=== PATIENT | female | born 2000 | race Two or more races ===

== ENCOUNTER 2024-03-27 17:51 | Emergency (ER) | payer OTHER ==
[~2024-03-27] VITALS: Ht 165.1 cm; Wt 60.9 kg
[2024-03-27 17:55] VITALS: BP 126/89; PULSE 77; RESP 16; TEMP 98.7; O2SAT 100
--- NOTE | 2024-03-27 18:07 | NUR ---
ASSUMED PATIENT CARE, NURSING ASSESSMENT COMPLETED. SEEN AND EVALUATED BY PROVIDER, MSE COMPLETED.
[2024-03-27] MEDS: predniSONE 20 MG TAB PO STA (18:26)
[2024-03-27] MEDS: FAMOTIDINE 20 MG TAB PO ONE (18:27)
[2024-03-27] MEDS ORDERED: LORA10TA60 PO (18:33)
[2024-03-27] MEDS ORDERED: DIPH25TA53 PO (18:33)
[2024-03-27] MEDS ORDERED: PRED20TA5 PO (18:33)
[2024-03-27 18:39] VITALS: BP 126/89; PULSE 77; RESP 16; TEMP 98.7; O2SAT 100
--- NOTE | 2024-03-27 18:40 | NUR ---
Patient discharged with v/s stable. Written and verbal after care instructions given and explained. Patient alert, oriented and verbalized understanding of instructions. Ambulatory with steady gait. All questions addressed prior to discharge. ID band removed. Patient advised to follow up with PMD. Rx of BENADRYL, LORATADINE, PREDNISONE given. Patient educated on indication of medication including possible reaction and side effects. Opportunity to ask questions provided and answered.
== END 2024-03-27 18:40 | disposition home or self-care (01) ==
LOC: MED 17:51
DX: L50.9 Urticaria, unspecified (principal); R03.0 Elevated blood-pressure reading, without diagnosis of hypertension; Z79.899 Other long term (current) drug therapy
CPT/HCPCS: 99284; J7512; Q0163